=== PATIENT | female | born 1985 | race Caucasian/White ===

== ENCOUNTER → 2018-04-10 | Outpatient (CLI) | payer OTHER ==
--- NOTE | 2018-04-10 12:05 | KCIC ---
MR of the left knee Indication: Left knee pain. Anterior knee pain for 2 weeks. Twisting injury. Technique: The standard multiplanar sequences are obtained. FINDINGS: Artifact: No significant image degradation. Medial meniscus:Intact. Lateral meniscus: Intact. Anterior cruciate ligament: Intact Posterior cruciate ligament: Intact Medial collateral ligament: Intact. Lateral structures: * Iliotibial band: Intact. * Lateral collateral ligament: Intact. * Biceps femoris tendon: Intact * Popliteus tendon attachment: Intact Extensive mechanism: * Patellar tendon: Intact * Quadriceps tendon: Intact * Retinacular structures: Intact Fluid: Small joint effusion. No significant Victor's cyst. 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 * medial compartment: Tiny full-thickness defect at the central weightbearing medial femoral condyle measuring 2 mm wide by about 1 cm AP mild subjacent bone marrow edema. This could be degenerative in nature or due to transchondral trauma with cartilage tear. * lateral compartment:Intact Bones: No significant lesion or acute fracture. Soft tissue: Unremarkable Impression: 1. Small full-thickness cartilage defect at the central weightbearing medial femoral condyle with subjacent marrow edema or contusion. This could be degenerative or related to transchondral trauma. 2. No meniscal tear or other internal derangement. 3. Small joint effusion Electronically signed by: eBni Arias MD (04/10/2018 12:02 PM) [id number]
== END | disposition home or self-care (01) ==
LOC: KCIC MRI 10:13
PROVIDERS: ATTEND Physician Assistant Medical
DX: M25.462 Effusion, left knee (principal); M94.262 Chondromalacia, left knee
CPT/HCPCS: 73721